=== PATIENT | female | born 1980 | race Caucasian/White ===

== ENCOUNTER 2020-09-07 05:51 | Emergency (ER) | payer SELFPAY ==
[2020-09-07 06:29] LABS: URINE BILIRUBIN - DIPSTICK NEGATIVE (NEGATIVE); URINE BLOOD DIPSTICK NEGATIVE (NEGATIVE); URINE COLOR YELLOW; URINE GLUCOSE - DIPSTICK NEGATIVE (NEGATIVE); URINE KETONE NEGATIVE (NEGATIVE); URINE LEUK ESTERASE NEGATIVE (NEGATIVE); URINE PROTEIN - DIPSTICK NEGATIVE (NEG-TRACE); URINE SPECIFIC GRAVITY 1.025; URINE UROBILINOGEN - DIPSTICK 0.2 E.U./dL (0.2)
[2020-09-07 06:34] LABS: URINE NITRITE - DIPSTICK NEGATIVE (Negative)
[2020-09-07] MEDS ORDERED: PYRIDIUM200 MG PO (06:44)
[2020-09-07] MEDS ORDERED: KEFLEX500 MG PO (06:44)
[2020-09-07 06:57] VITALS: BP 108/73
== END 2020-09-07 06:59 | disposition home or self-care (01) | DRG 696 ==
LOC: ED 05:51
PROVIDERS: Emergency Medicine
DX: R30.0 Dysuria (principal); Z87.442 Personal history of urinary calculi